=== PATIENT | male | born 1960 | race Caucasian/White ===

== ENCOUNTER 2020-07-03 10:37 | Outpatient (CLI) | payer MEDICARE, SELFPAY ==
--- NOTE | 2020-07-19 21:13 | SLEEP_ITS ---
HOME SLEEP STUDY DATE OF STUDY: 07/03/2020 ORDERING PHYSICIAN: Dr. Fredrick Tse. REASON FOR THIS STUDY: TIA. HISTORY: This patient is a 59-year-old man 5 feet 11 inches tall, weighing 212.5 pounds. BMI is 30 kg/metered square. He has a history of loud snoring. He previously has been diagnosed with obstructive sleep apnea syndrome. This happened several years ago. He wakes up during the night and in the master printer hours. He has used trazodone in the past. He snores loudly all the time, rarely it is loud enough that others complain about it. He rarely awakens at night with heartburn, belching, or coughing. He rarely awakens from sleep feeling short of breath. He does not have trouble sleeping with a cold and does not wake up gasping for breath at night. He frequently snores. He does not sweat excessively at night and does not notice his heart pounding or beating irregularly at night. He occasionally falls asleep in the day, occasionally involuntarily, never while driving or with physical effort. He does not have loss of muscle tone with strong emotion or daytime difficulties due to excessive sleepiness. He does not feel paralyzed on waking or falling asleep nor does he have vivid dreamlike scenes upon awakening or falling asleep. He is never afraid to go to sleep. He does not have nightmares. He rarely remembers his dreams. He does not have racing thoughts, feelings of sadness or depression, but rarely does have anxiety. He does not have muscular tension. He notices his legs shaking, but this happens during the day as well as at night. He rarely kicks at night. He does not have crawly achy feelings in his legs and does not experience leg pain during the night. He does not have morning jaw pain and does not grind his teeth during sleep. He rarely is bothered by pain during the day, rarely wakes with pain at night, rarely wakes up feeling stiff in the morning with sore achy muscles or pain in the neck and spine. He has stomach problems, sexual problems, and feels tense. He goes to bed at 11:00 p.m., falls asleep instantly, waking once at night for 20 minutes. When he wakes, he will go to the bathroom or get a drink of water. He wakes in the morning between 5:00 and 5:30 a.m. Weekend schedule is the same. He estimates 6 hours of sleep at night. He does take naps in the afternoon. A short nap is not refreshing. He feels better in the morning than other times of day, although every night of sleep is not refreshing. MEDICAL COMORBIDITIES: 1. COPD. 2. History of a stroke. 3. Non-small cell lung cancer. 4. Hypertension. HABITS: Quit tobacco 2 years ago. He smoked 30 years prior to that. Caffeine, 3 cups a day. No alcohol or recreational drugs. DESCRIPTION OF THE STUDY: On the [place] Sleepiness Scale, his score is 9. This was conducted as an unattended type 3 portable home sleep test using 4-channel monitoring with respiratory effort channel, snoring channel, oxygen saturation channel, and heart rate channel. This study was scored using [facility] guidelines. The duration of the study was 5 hours 11 minutes. The apnea-hypopnea index is 24. The oxygen desaturation index is 20. Average saturation is 91% lower than normal. Lowest desaturation is 83%. The patient had 25 apneas. Majority of the apneas, 88% or 22 were obstructive, 1 apnea or 4% was unclassified, 1 apnea or 4% was central, and 1 apnea or 4% was a mixed apnea. He had 99 hypopneas. He spent 21 minutes or 6% of the study below 88% saturation. He had 128 desaturations. Snoring was moderate with 4651 snoring events. Heart rate ranged from 41 with 1 spike in heart rate up to 159. The average heart rate was 70. IMPRESSION: 1. This home sleep test shows evidence of at least moderate
== END 2020-07-03 10:38 | disposition home or self-care (01) ==
LOC: ANHCSM 10:38
PROVIDERS: Visit Provider Student in an Organized Health Care Education/Training Program
DX: G47.33 Obstructive sleep apnea (adult) (pediatric) (principal)
CPT/HCPCS: 95806

== ENCOUNTER 2024-09-21 00:03 | Day surgery (SDC) | payer MEDICARE, SELFPAY ==
--- NOTE | 2024-09-05 10:45 | PC.NURSE ---
Multiple attemps made 09/01-09/05 to contact patients with no success, messages have been left including on his portal. Last message is to contact us prior to afternoon on 09/05/2024 to receive instructions- pt is on Plavix and his last dose needs to be 09/05/2024 for procedure on 09/13/2024, or we will need to reschedule his procedure. I have contacted PCP's office and received emergency contact and left message with that # and secondary # from Dr. Reyes's office- says wireless customer is not available please try later.
[2024-09-05 15:50] VITALS: BMI 27.6
--- NOTE | 2024-09-05 16:10 | PC.NURSE ---
Spoke with PATIENT regarding medication PLAVIX. Pt. verbalizes understanding that the last dose is to be taken on 09/05/2024 and the Endoscopist will instruct them when to restart after the procedure.
--- NOTE | 2024-09-13 11:00 | PC.NURSE ---
Spoke with _SON, JAISON regarding medication PLAVIX verbalizes understanding that the last dose of PLAVIX is to be taken on 09/13/2024 and he will relay this message to patient (his father) and the Endoscopist will instruct them when to restart after the procedure.
[2024-09-21 11:00] VITALS: BP 133/90; PULSE 74; RESP 18; TEMP 36.3; O2SAT 100
[2024-09-21] MEDS: LACTATED RINGERS 1,000 ML 150 ML IV CONT (11:07)
--- NOTE | 2024-09-21 11:17 | P.PNAN_ITS ---
Anes - Initial Pre Proc Eval Procedure: Operation Date: 09/21/24 14:30 Proposed Procedures p Esophagogastroduodenoscopy - Kj Reyes MD Date/Time: 09/21/24 11:17 Surgeon: Kj eRyes MD Pre Op Diagnosis: Dysphagia Patient Data Age: 63 Gender: M Height: 1.79 m Weight: 88.9 kg Last Vital Signs Temp 97.3 F L 09/21/24 11:00 Pulse 74 09/21/24 11:00 Resp 18 09/21/24 11:00 BP 133/90 09/21/24 11:00 Pulse Ox 100 09/21/24 11:00 O2 Del Method Room Air 09/21/24 11:00 Allergies Allergy/AdvReac Type Severity Reaction Status Date / Time baclofen Allergy Severe respiratory Verified 09/21/24 10:54 distress codeine AdvReac Mild Gastrointestinal Verified 09/21/24 10:54 Upset cyclobenzaprine AdvReac Mild Anxiety Verified 09/21/24 10:54 Home Medications ?Medication ?Instructions ?Recorded ?Confirmed ?Type albuterol sulfate 90 mcg/actuation 2 puff inhalation Q4H PRN 07/21/24 09/05/24 History aerosol inhaler Shortness Of Breath Or Wheezing atorvastatin 80 mg tablet 80 mg PO DAILY 07/21/24 09/21/24 History budesonide 160 mcg-glycopyr 9 2 inh inhalation BID 07/21/24 09/21/24 History mcg-formot 4.8 mcg/actuation HFA inhaler (Breztri Aerosphere) bupropion HCl 300 mg 24 hr tablet, 300 mg PO QAM 07/21/24 09/21/24 History extended release clopidogrel 75 mg tablet 75 mg PO DAILY 07/21/24 09/21/24 History fluticasone propionate 50 1 spray intranasal DAILY 07/21/24 09/21/24 History mcg/actuation nasal spray,suspension lisinopril 10 mg tablet 10 mg PO DAILY 07/21/24 09/21/24 History pantoprazole 40 mg tablet,delayed 40 mg PO QAM 07/21/24 09/21/24 History release tamsulosin 0.4 mg capsule 0.4 mg PO DAILY 07/21/24 09/21/24 History trazodone 100 mg tablet 150 mg PO HS 07/21/24 09/21/24 History Patient hx anesthesia problems: none Family hx anesthesia problems: none Results Review: All pre-operative results and documents have been reviewed as part of the pre- operative evaluation. [facility] Past Medical History Medical History Anxiety Cerebrovascular accident Chronic obstructive pulmonary disease Hx of malignant neoplasm of lung Obstructive sleep apnea syndrome Family History Family History Father Coronary arteriosclerosis Mother Diabetes mellitus Cerebrovascular accident Social History Social History Smoking packs per day: 1 Smoking cigarettes per day: 20.0 Years smoked: 40 Smoking pack-years: 40.00 Smoking status: Former smoker Tobacco type: cigarettes Alcohol use details: occasional Substance use: never Living arrangements: alone Spiritual care concerns: No Anes - Eval Final PreProcedure Day of Procedure 09/21/24 11:17 Patient weight: normal Heart: regular rate and rhythm Lungs: clear to auscultation Airway: Mallampati scale class II Neurological: alert and oriented Last oral intake: >/= 8 hours ASA classification: III Emergent: no Anesthetic plan: proceed Anesthesia type and monitoring: general GIVS and standard monitoring Results Review: All pre-operative results and documents have been reviewed as part of the pre- operative evaluation. Informed Consent: The patient's anesthetic plan and its attendant risks and benefits were discussed with the patient/family/POA. Questions were solicited and answers provided to the satisfaction of the patient/family/POA.
--- NOTE | 2024-09-21 11:45 | PM.IMHP ---
H&P: HPI History of Present Illness Date/Time: 09/21/24 11:45 Chief Complaint: dysphagia Narrative: This pt has a past medical surgical history of CVA/TIA (2010 and 2013) on plavix, lung cancer s/p chemo and immunotherapy (2015) He reports difficulty swallowing for the past 6-7 months. He has intermittent dysphagia with both solids and liquids, particularly tough meats . Had EGD in 2019 for dysphagia but states symptoms were worse at that time, had dilation which helped. He was diagnosed with non-small cell lung cancer in January 2016 and has been in remission since November 2018. He underwent chemo and radiation therapy, which made him very sick and required a 4-day hospital stay. He then received immunotherapy, which worked well. Review of Systems Review of Systems: All systems reviewed & are unremarkable except as noted in HPI and below PMFSH Past Medical History Medical History Anxiety Cerebrovascular accident Chronic obstructive pulmonary disease Hx of malignant neoplasm of lung Obstructive sleep apnea syndrome Family History Family History Father Coronary arteriosclerosis Mother Diabetes mellitus Cerebrovascular accident Social History Social History Smoking packs per day: 1 Smoking cigarettes per day: 20.0 Years smoked: 40 Smoking pack-years: 40.00 Smoking status: Former smoker Tobacco type: cigarettes Alcohol use details: occasional Substance use: never Living arrangements: alone Spiritual care concerns: No Meds Home Medications and Allergies Home Medications ?Medication ?Instructions ?Recorded ?Confirmed ?Type albuterol sulfate 90 mcg/actuation 2 puff inhalation Q4H PRN 07/21/24 09/05/24 History aerosol inhaler Shortness Of Breath Or Wheezing atorvastatin 80 mg tablet 80 mg PO DAILY 07/21/24 09/21/24 History budesonide 160 mcg-glycopyr 9 2 inh inhalation BID 07/21/24 09/21/24 History mcg-formot 4.8 mcg/actuation HFA inhaler (Breztri Aerosphere) bupropion HCl 300 mg 24 hr tablet, 300 mg PO QAM 07/21/24 09/21/24 History extended release clopidogrel 75 mg tablet 75 mg PO DAILY 07/21/24 09/21/24 History fluticasone propionate 50 1 spray intranasal DAILY 07/21/24 09/21/24 History mcg/actuation nasal spray,suspension lisinopril 10 mg tablet 10 mg PO DAILY 07/21/24 09/21/24 History pantoprazole 40 mg tablet,delayed 40 mg PO QAM 07/21/24 09/21/24 History release tamsulosin 0.4 mg capsule 0.4 mg PO DAILY 07/21/24 09/21/24 History trazodone 100 mg tablet 150 mg PO HS 07/21/24 09/21/24 History Allergies Allergy/AdvReac Type Severity Reaction Status Date / Time baclofen Allergy Severe respiratory Verified 09/21/24 10:54 distress codeine AdvReac Mild Gastrointestinal Verified 09/21/24 10:54 Upset cyclobenzaprine AdvReac Mild Anxiety Verified 09/21/24 10:54 Vital Signs Vital Signs - 24 hr 09/21/24 11:00 Temperature 97.3 F L Pulse Rate 74 Respiratory Rate 18 Blood Pressure 133/90 Pulse Oximetry 100 Oxygen Delivery Room Air Exam Const: General: cooperative and healthy appearing Resp: Effort & Inspection: normal respiratory effort and able to speak in complete sentences Auscultation: clear to auscultation bilaterally Cardio: Rate: regular rate Rhythm: regular rhythm GI: Inspection: normal to inspection GI Palp: No No hepatosplenomegaly present Auscultation: normal bowel sounds Rectal Exam: deferred Skin: General skin exam: normal color Psych: Appearance: grossly normal Mental Status: mental status grossly normal Assessment and Plan Assessment and plan (1) Dysphagia: Code(s): R13.10 - Dysphagia, unspecified Status: Acute Assessment and Plan: Differential diagnosis in this patient includes recurrent Schatzki ring, peptic esophagitis or radiation induced stricture. Considered a good candidate for EGD, will proceed. consent signed.
[2024-09-21 12:12] VITALS: BP 129/76; PULSE 70; RESP 17; O2SAT 97
[2024-09-21 12:22] VITALS: BP 137/85; PULSE 77; RESP 16; O2SAT 98
[2024-09-21 12:32] VITALS: BP 147/93; PULSE 74; RESP 13; O2SAT 100
== END 2024-09-21 12:48 | disposition home or self-care (01) ==
PROVIDERS: Referring Provider Nurse Practitioner; Visit Provider Internal Medicine Gastroenterology
PROC: 0DJ08ZZ Inspection of Upper Intestinal Tract, Via Natural or Artificial Opening Endoscopic (ICD-10-PCS; CPT 43235; principal; 2024-09-21 14:30)
DX: K22.2 Esophageal obstruction (principal); K44.9 Diaphragmatic hernia without obstruction or gangrene; J44.9 Chronic obstructive pulmonary disease, unspecified; G47.33 Obstructive sleep apnea (adult) (pediatric); F41.9 Anxiety disorder, unspecified; Z86.73 Personal history of transient ischemic attack (TIA), and cerebral infarction without residual deficits; Z79.02 Long term (current) use of antithrombotics/antiplatelets; Z85.118 Personal history of other malignant neoplasm of bronchus and lung; Z92.21 Personal history of antineoplastic chemotherapy; Z79.51 Long term (current) use of inhaled steroids; Z87.891 Personal history of nicotine dependence
CPT/HCPCS: 43249; 88305; C1726; J2003; J2704; J7120